=== PATIENT | male | born 2000 | race Caucasian/White ===

== ENCOUNTER 2025-03-29 08:32 | Day surgery (SDC) | payer BC, SELFPAY ==
[2025-03-28 21:36] VITALS: BP 111/84
[2025-03-28 23:21] VITALS: BMI 25.0
--- NOTE | 2025-03-28 23:54 | ED.GENMED ---
History of Present Illness
<Edelmira Collado MD, Resident - Last Filed: 03/29/25 00:31>
General
Chief Complaint: Esophageal Problem
Source: patient
Exam Limitations: none
Time Seen by Provider: 03/28/25 23:54
Nursing documentation reviewed up to this point in time: agreed with
History of Present Illness
History of Present Illness:
25yo M with a hx of epilepsy presents with difficulty swallowing liquids following an episode of food impaction/regurgitation.
Pt reports that he was eating dinner this evening (chicken & rice) and the food got stuck in his throat after eating too quickly. He says this has happened a few times in his life prior, always with solid foods eating quickly. After feeling stuck,
he has to regurgitate the food. Per mom at bedside, this runs in the family - the mom & maternal grandfather also experience this phenomenon.
Tonight, after regurgitating the impacted food, the pt was unable to swallow liquids. He tried gatorade & carbonated water, both of which seemed to go down but then came back up with secretions/salivation that he had to spit out. Denies any residual
CP or SOB. Denies nausea associated with the episode. He has never had trouble swallowing liquids before. Neither he nor anyone in the family has had a barium esophagram or esophageal manometry before. Denies any hx of halitosis.
Has a remote hx of asthma and has allergies to tree nuts & dairy. Takes lamotrigine for epilepsy. States he is feeling better after a few hours of not drinking or eating.
Past History
<Edelmira Collado MD, Resident - Last Filed: 03/29/25 00:31>
Past History
ED Past Medical History: Seizures
ED Past Surgical History: None
Patient has exhibited threatening behavior?: No
Social History
Tobacco: Non-smoker
Alcohol: None
Drug: None
Family History
Family History: Other (FH of esophageal impaction )
Review of Systems
<Edelmira Collado MD, Resident - Last Filed: 03/29/25 00:31>
Review of Systems
Allergies reviewed?: Yes
All Other Systems: ROS reviewed and negative except as documented in HPI and ROS
Constitutional: Reports no symptoms
EENT: Reports other (excess salivation & difficulty swallowing liquids and solids )
Respiratory: Reports no symptoms
Cardiac: Reports no symptoms
ABD/GI: Reports no symptoms
Neurological: Reports no symptoms
Phy Exam
<Edelmira Collado MD, Resident - Last Filed: 03/29/25 00:31>
General Physical Exam
General Presentation: well appearing and no apparent distress
General age: appears stated age
General Skin: warm and dry
General Habitus: normal
General Mental: alert
General Hydration: appears well hydrated
ENT Exam
ENT Exam: neck supple, normocephalic and other (on trial of swallowing liquid, unable to swallow, burping, spitting )
Cardiovascular Exam
Cardiovascular Exam: regular rate/rhythm
Pulmonary Exam
Pulmonary Exam: no respiratory distress
Gastrointestinal Exam
Gastrointestinal Exam: non distended
Psychiatric Exam
Psychiatric Exam: normal mood/affect
Course
<Edelmira Collado MD, Resident - Last Filed: 03/29/25 00:31>
Orders/Labs/Results
Orders:
Orders
03/29/25 00:05
Glucagon [GlucaGen] 1 mg IM NOW STA
03/29/25 02:24
Glucagon [GlucaGen] 1 mg .ROUTE .STK-MED ONE
Vital Signs
Initial and Last Documented VS:
Initial Vital Signs
Temp Pulse Resp BP Pulse Ox
98.6 F 51 18 111/84 98
03/28/25 21:36 03/28/25 21:36 03/28/25 21:36 03/28/25 21:36 03/28/25 21:36
Last Documented Vital Signs
Temp Pulse Resp BP Pulse Ox
98.6 F 52 14 98/62 97
03/28/25 21:36 03/29/25 05:05 03/29/25 05:05 03/29/25 05:05 03/29/25 05:05
<Hoang Maradiaga DO - Last Filed: 03/29/25 06:03>
Orders/Labs/Results
Orders:
Orders
03/29/25 00:05
Glucagon [GlucaGen] 1 mg IM NOW STA
03/29/25 02:24
Glucagon [GlucaGen] 1 mg .ROUTE .STK-MED ONE
Vital Signs
Initial and Last Documented VS:
Initial Vital Signs
Temp Pulse Resp BP Pulse Ox
98.6 F 51 18 111/84 98
03/28/25 21:36 03/28/25 21:36 03/28/25 21:36 03/28/25 21:36 03/28/25 21:36
Last Documented Vital Signs
Temp Pulse Resp BP Pulse Ox
98.6 F 52 14 98/62 97
03/28/25 21:36 03/29/25 05:05 03/29/25 05:05 03/29/25 05:05 03/29/25 05:05
<Edelmira Collado MD, Resident - Last Filed: 03/29/25 00:31>
MDM/Problems Addressed
Differential Diagnosis Includes:
Diffuse esophageal spasm vs. achalasia, given difficulty with both solids & liquids and recurrent episodic nature
Heartburn more common with achalasia than KAMERON, which pt does not have
Ddx also includes eosinophilic esophagitis (asthma & allergies; less likely to impact liquids)
MDM/Problems Addressed:
Plan:
- Trial of swallowing liquid, progress to applesauce if successful
- If not, trial glucagon x2-3 rounds
- If remains unsuccessful, GI consult for esophagram study
<Edelmira Collado MD, Resident - Last Filed: 03/29/25 00:31>
*Pulse Oximetry
SaO2: 98
Oxygen Mode of Delivery: Room air
Data Reviewed
Source: patient and family
<Hoang Maradiaga, DO - Last Filed: 03/29/25 06:03>
*Pulse Oximetry
Patient hypoxic: no
*Critical Care Note
Total Time (30-74mins, 75-104mins- exclusive of procedures): Not Applicable
<Edelmira Collado MD, Resident - Last Filed: 03/29/25 00:31>
Update Note
Update Note:
Update:
Pt attempted to drink a small amount of water. Had immediate burping, appearance of discomfort, retching, secretions that were spit up
Administered IM glucagon
Will plan to re-trial drinking test
ED Attending Note
<Edelmira Collado MD, Resident - Last Filed: 03/29/25 00:31>
-
Portions of this chart may have been created with voice recognition software.� Occasional wrong word or��sound alike� substitutions may have occurred due to the inherent limitations of voice recognition software.
<Hoang Maradiaga, DO - Last Filed: 03/29/25 06:03>
ED Attending Note
Patient seen and examined by attending physician: Yes
I performed a history and physical exam of patient and discussed management with resident, I reviewed resident's note and agree with documented findings and plan of care.: Yes
ED Attending Note:
Note:
CHIEF COMPLAINT(S)
Difficulty swallowing liquids and solids, with regurgitation.
HISTORY OF PRESENT ILLNESS
The patient is a 25-year-old male presenting with a history of dysphagia, characterized by difficulties in swallowing both liquids and solids. The patient reports an episode of regurgitating solid food after a meal earlier today. Despite attempts to
drink liquids, he experiences regurgitation, with liquids returning to the mouth, accompanied by excessive salivation. This condition appears familial, as reported occurrences in his mother and uncle were mentioned. He previously experienced
temporary relief in symptoms after certain maneuvers or medications.
ADDITIONAL HISTORY OBTAINED FROM SOURCES OTHER THAN THE PATIENT
Per a family member, the patient often faces similar difficulties when eating certain foods too quickly, leading to regurgitation.
REVIEW OF SYSTEMS
- Gastrointestinal: Difficulty in swallowing liquids and solids, regurgitation of food and liquids, excessive salivation.
PHYSICAL EXAM
General: Alert, no acute distress.
Skin: Warm, dry.
Head: Normocephalic, atraumatic.
Neck: Supple, trachea midline.
Eyes, Ears, Nose, Mouth, and Throat: Oral mucosa moist.
Cardiovascular: Normal peripheral perfusion, no edema.
Respiratory: Respirations are non-labored.
Gastrointestinal: Abdomen nondistended.
Back: Normal range of motion, Normal alignment.
Musculoskeletal: Normal range of motion, normal strength.
Neurological: Alert and oriented to person, place, time, and situation, no focal neurological deficit observed.
Psychiatric: Cooperative, appropriate mood & affect.
PLAN
Administer medication to relax smooth muscle and facilitate passage of obstructed materials. Further diagnostic evaluation may be necessary to rule out structural or functional esophageal disorders.
DIFFERENTIAL DIAGNOSIS
The Differential Diagnosis includes, in no particular order and is not limited to:
1. Esophageal Stricture
2. Achalasia
3. Esophageal Spasm
4. Gastroesophageal Reflux Disease (GERD)
5. Eosinophilic Esophagitis
6. Foreign Body Impaction
7. Zenkers Diverticulum
8. Hiatal Hernia
9. Motility Disorder
10. Esophagitis
CARE-UPDATE
03/29/25 - 04:[address] Yunier Quintana has been arranged; he will review the patients case in person.
Disposition:
SUMMARY OF ENCOUNTER
A 25-year-old male presented with dysphagia, experiencing difficulty swallowing both liquids and solids accompanied by regurgitation. This condition appears familial as there is a history of similar symptoms in his family. The patient was evaluated
for possible esophageal disorders. Given the severity of his symptoms and the need for further evaluation, consultation with Dr. Yunier Quintana was arranged.
DISPOSITION
Transfer to the operating room with Dr. Yunier Quintana.
MANAGEMENT OF THE PATIENTS CARE WAS DISCUSSED WITH
Dr. Yunier Quintana was consulted for further evaluation of the patients esophageal condition.
DIAGNOSIS
Dysphagia, suspected esophageal disorder (ICD-10: R13.10).
Discharge Plan
Departure
Patient Disposition: OR
Date of Disposition: 03/29/25
Time of Disposition: 06:02
Admit to: GI lab and OR
Presentation/result/management discussed w/ accepting /: Bravo Quintana
Condition: Fair
Discharge Problem:
Food impaction of esophagus
Prescriptions:
No Action
Lamictal
400 mg PO DAILY
Referrals:
Melquiades Sampson DO [Family Provider, Family Practice]
Interventions
Interventions:
*Risk Screen - Suicide Last Done: 03/28/25 21:36
*General Assessment Last Done: 03/28/25 21:36
*Neglect/Abuse Screening Last Done: 03/28/25 23:24
*ED- Fall Risk Assessment Last Done: 03/28/25 23:24
*ED COVID-19 Vaccine History Last Done: 03/28/25 23:24
*ED Influenza Vaccine History Last Done: 03/28/25 23:24
ED-EENT Assessment Last Done: 03/28/25 23:22
[place]-Llix[facility]-Bzegqeft[facility] Assessment Last Done: 03/28/25 23:23
Discharge Date and Time
Print Language: TURKMEN
[2025-03-29] VITALS (9 sets, daily range): BP systolic 98–122; BP diastolic 62–76
--- NOTE | 2025-03-29 03:07 | DOWNTIME ---
There was a [employer] Downtime on 03/29/2025 from 0100 to 03/29/2025 at 0255. Downtime documentation of patient's care, including medication administrations, has been reconciled in the electronic record per guidelines. Refer to the
patient's paper chart under the miscellaneous tab to see printed paper medication records and downtime forms.
--- NOTE | 2025-03-29 05:32 | CON.GI ---
Consultation
-
Date/Time Consultation Requested: 03/29/250
Date/Time Consultation Performed: 03/19/25 0532
Requesting Provider: Hoang Maradiaga
Performing Provider: Bravo Quintana
Reason for Consultation: Food impaction
Medical History
Chief Complaint / HPI
Chief Complaint: Esophageal Problem
History of Present Illness:
Reinaldo is a 25 y.o male with a past medical history of epilepsy who presented to the ED with difficulty swallowing liquids and inability to tolerate secretions. GI has been consulted for further evaluation and management.
Patient reports eating dinner this evening (chicken and rice) with food getting stuck in his throat after eating. He admits similar symptoms in the past typically with solid food. He tried regurgitating at home along with coughing and self
inducing gagging without any relief. Given his ongoing symptoms and inability to swallow liquids he came to the ED for further evaluation. Denies any chest pain or shortness of breath. No other nausea or vomiting. He denies any recent upper
endoscopy however notes a prior EGD several years ago when he was younger as a child. History significant for asthma as well as allergies to tree nuts and dairy. History also significant for epilepsy which he takes lamotrigine for. Otherwise, he
is not on any blood thinners. He was given 2 doses of glucagon in the ED without any relief of symptoms. Currently, he still feels a sensation of something stuck in his chest however is currently tolerating his secretions but still unable to
tolerate any liquids.
Past Medical History
Past Medical History: Seizures
Social History
Tobacco: Non-Smoker
Alcohol: None
Drug: None
Family History
Family History: Reviewed & Not Pertinent
Allergies / Home Medications
Allergy/AdvReac Type Severity Reaction Status Date / Time
tree nut Allergy Unknown Verified 03/28/25 21:38
dairy Allergy Unknown Uncoded 03/28/25 21:38
�Medication �Instructions �Recorded
Lamictal 400 mg PO DAILY 03/29/25
Review of Systems
-
All other systems: A 12 pt ROS was Negative except as stated above in HPI
Vital Signs
Temp Pulse Resp BP Pulse Ox
98.6 F 52 14 98/62 97
03/28/25 21:36 03/29/25 05:05 03/29/25 05:05 03/29/25 05:05 03/29/25 05:05
Physical Exam
Exam
General: Well Developed, No Apparent Distress, Comfortable and Other (Resting comfortably, asleep in bed)
HEENT: Anicteric and Moist Mucous Membranes
Respiratory: Other (Normal WOB on room air)
Cardiac: S1/S2
GI: Soft, Non Tender and Non Distended
Skin: Warm
Neuro: Nonfocal/Grossly Intact
Psych: Calm
Assessment / Plan
-
Reinaldo is a 25 y.o male with a past medical history of epilepsy who presented to the ED with difficulty swallowing liquids and eating chicken/rice concerning for a food impaction. GI has been consulted for further evaluation and management.
#Food Impaction
Impression: Patient presenting to the ED after eating chicken and rice with a sensation of food feeling stuck in his chest with inability to tolerate liquids. S/p 2 doses of glucagon in ED with some relief of symptoms. Currently, he is resting
comfortably and tolerating his secretions/saliva at bedside this morning. Clinically, concern for underlying EOE versus GERD versus stricture versus esophagitis. However, still concern for partial obstruction and would benefit from a diagnostic EGD
for further evaluation.
Recommendations:
- Keep NPO
- Will plan for EGD this morning for further evaluation
- See same-day EGD report for additional findings and recommendations
- Rest of care per ED
Discussed with ED this AM.
Data Reviewed
-
Old Records: Reviewed
-
-
Thank you for consultation and allowing me to participate in the patient's care. Please call the contract forester GI physician during the after hours with any questions or concerns.
--- NOTE | 2025-03-29 07:57 | EDRN ---
Report given to Beverley BROOKS in GI room #6. Pt's mother w/ pt. Mother asked about pt getting his lamictal though pt NPO and no admission orders just GI orders for EGD. THis RN informed Beverley about mother's concerns that pt has not received his AM
lamictal.
== END 2025-03-29 10:10 | disposition home or self-care (01) ==
LOC: GI 08:32
PROVIDERS: ATTENDING PHYSICIAN Student in an Organized Health Care Education/Training Program; EMERGENCY PHYSICIAN Student in an Organized Health Care Education/Training Program; FAMILY PHYSICIAN Family Medicine
DX: T18.128A Food in esophagus causing other injury, initial encounter (principal); W44.F3XA Food entering into or through a natural orifice, initial encounter; K22.89 Other specified disease of esophagus; T18.108A Unspecified foreign body in esophagus causing other injury, initial encounter; K20.90 Esophagitis, unspecified without bleeding; T18.2XXA Foreign body in stomach, initial encounter; K20.0 Eosinophilic esophagitis
CPT/HCPCS: 43247; 43239; 88305; 96372; 99284; J1610